=== PATIENT | female | born 1975 | race Caucasian/White ===

== ENCOUNTER → 2017-04-06 13:45 | Emergency (ER) | payer OTHER ==
[~2017-04-06 13:45] MED LIST: Amoxicillin/Clavulanate TAB* 875 MG PO ONE; guaiFENesin ER TAB 600 MG PO ONE
[2017-04-06 15:50] LABS: Hematocrit 39 % (35-47); Hemoglobin 13.1 g/dl (12.0-16.0); Mean Corpuscular HGB Conc 34 g/dl (31-36); Mean Corpuscular Hemoglobin 30 pg (27-31); Mean Corpuscular Volume 89 fL (80-97); Mean Platelet Volume 7 um3 (7.4-10.4); Red Blood Count 4.37 10^6/ul (4.0-5.4); Red Cell Distribution Width 14 % (10.5-15); White Blood Count 12.2 10^3/ul (3.5-10.8)
[2017-04-06 16:06] LABS: Urine Bilirubin Negative (Negative); Urine Glucose Negative (Negative); Urine Nitrite Negative (Negative)
[2017-04-06 16:08] LABS: Albumin 3.8 g/dL (3.2-5.2); BUN/Creatinine Ratio 6.9 (8-20); C Reactive Protein 87.66 mg/L (< 5.00); Calcium 9.2 mg/dL (8.6-10.3); EGFR Non-African American 90.2 (>60); Potassium 3.8 mmol/L (3.5-5.0); Total Bilirubin 0.6 mg/dL (0.2-1.0); Total Protein 7.8 g/dL (6.4-8.9)
[2017-04-06 16:13] LABS: Urine Bacteria Absent (Absent)
--- NOTE | 2017-04-06 16:35 | RAD ---
INDICATION: Shortness of breath. COMPARISON: None TECHNIQUE: PA and lateral views of the chest were obtained. FINDINGS: The heart and mediastinum are normal in size and contour. The lungs are grossly clear. There is no evidence of large pleural effusion. Visualized bones are normal for the patient's age. There is no radiographic evidence of free air beneath the diaphragm IMPRESSION: No radiographic evidence of acute cardiopulmonary disease.
[2017-04-06 16:51] VITALS: BP 119/77
--- NOTE | 2017-04-06 18:43 | ED ---
Aram Salinas Angela, scribed for Dio Anderson MD on 04/06/17 at 1548 . Complex/Multi-Sys Presentation - HPI Summary HPI Summary: This pt is a 41 y/o female presenting to [facility] c/o SOB, sinus congestion, and sore throat x2 days. Pt additionally c/o chest pain, sinus congestion, rhinorrhea, sinus pain, fever, and chills. Pt states she has difficulty swallowing secondary to pain. She reports she has had cold symptoms for the last 5 days, but has been worsening over the past 2 days with SOB. Pt denies nausea, vomiting, diarrhea. Pt notes having these symptoms many times before. PMHx: asthma - History Of Current Complaint Chief Complaint: EDUpperRespComplaint Time Seen by Provider: 04/06/17 15:23 Hx Obtained From: Patient Onset/Duration: Lasting Days Timing: Days Associated Signs And Symptoms: Positive: SOB, Cough, Chest Pain, Fever, Other - chills, sinus congestions, rhinorrhea, sinus pain, sore throat. Negative: Nausea, Vomiting, Diarrhea - Allergies/Home Medications Allergies/Adverse Reactions: Allergies Allergy/AdvReac Type Severity Reaction Status Date / Time No Known Allergies Allergy Verified 04/06/17 13:46 PMH/Surg Hx/FS Hx/Imm Hx Endocrine/Hematology History: Denies: Hx Diabetes Cardiovascular History: Denies: Hx Hypertension Respiratory History: Reports: Hx Asthma Infectious Disease History: No Infectious Disease History: Denies: Traveled Outside the [place] in Last 30 Days - Family History Known Family History: Positive: Hypertension - mother Negative: Cardiac Disease, Diabetes - Social History Alcohol Use: None Hx Substance Use: No Substance Use Type: Reports: None Hx Tobacco Use: No Smoking Status (MU): Never Smoked Tobacco Review of Systems Positive: Fever, Chills Positive: Sore Throat, Nasal Discharge, Other - sinus pain, sinus congestion Positive: Chest Pain. Negative: Palpitations Positive: Shortness Of Breath, Cough - dry Negative: Abdominal Pain, Vomiting, Diarrhea, Nausea Skin: Negative Neurological: Negative All Other Systems Reviewed And Are Negative: Yes Physical Exam - Summary Physical Exam Summary: VITAL SIGNS: Reviewed. GENERAL: ~Patient is a well-developed and nourished female who is lying comfortable in the stretcher. ~Patient is not in any acute respiratory distress. HEAD AND FACE: No signs of trauma. No ecchymosis, hematomas or skull depressions. Positive maxillary and sinus tenderness. Positive nasal congestion and runny nose. EYES: PERRLA, EOMI x 2, No injected conjunctiva, no nystagmus. EARS: Hearing grossly intact. Ear canals and tympanic membranes are within normal limits. MOUTH: Oropharynx within normal limits. NECK: Supple, trachea is midline, no adenopathy, no JVD, no carotid bruit, no c- spine tenderness, neck with full ROM. CHEST: Symmetric, no tenderness at palpation LUNGS: Clear to auscultation bilaterally. No wheezing or crackles. CVS: Regular rate and rhythm, S1 and S2 present, no murmurs or gallops appreciated. ABDOMEN: Soft, non-tender. No signs of distention. No rebound no guarding, and no masses palpated. Bowel sounds are normal. EXTREMITIES: FROM in all major joints, no edema, no cyanosis or clubbing. NEURO: Alert and oriented x 3. No acute neurological deficits. Speech is normal and follows commands. SKIN: Dry and warm Triage Information Reviewed: Yes Vital Signs On Initial Exam: Initial Vitals Temp Pulse Resp BP Pulse Ox 98.4 F 106 20 137/85 100 04/06/17 13:46 04/06/17 13:46 04/06/17 13:46 04/06/17 13:46 04/06/17 13:46 Vital Signs Reviewed: Yes Diagnostics - Vital Signs Vital Signs Temp Pulse Resp BP Pulse Ox 04/06/17 13:46 98.4 F 106 20 137/85 100 - Laboratory Lab Results: Lab Results 04/06/17 04/06/17 04/06/17 Range/Units 15:40 15:40 15:40 WBC 12.2 H (3.5-10.8) 10^3/ul RBC 4.37 (4.0-5.4) 10^6/ul Hgb 13.1 (12.0-16.0) g/dl Hct 39 (35-47) % MCV 89 (80-97) fL MCH 30 (27-31) pg MCHC 34 (31-36) g/dl RDW 14 (10.5-15) % Plt Count 264 (150-450) 10^3/ul MPV 7 L (7.4-10.4) um3 Neut % (Auto) 83.1 H (38-83) % Lymph % (Auto) 7.7 L (25-47) % [place] % (Auto) 5.0 (1-9) % Eos % (Auto) 3.5 (0-6) % Baso % (Auto) 0.7 (0-2) % Absolute Neuts (auto) 10.1 H (1.5-7.7) 10^3/ul Absolute Lymphs (auto) 0.9 L (1.0-4.8) 10^3/ul Absolute Monos (auto) 0.6 (0-0.8) 10^3/ul Absolute Eos (auto) 0.4 (0-0.6) 10^3/ul Absolute Basos (auto) 0.1 (0-0.2) 10^3/ul Absolute Nucleated RBC 0 10^3/ul Nucleated RBC % 0 Sodium 137 (133-145) mmol/L Potassium 3.8 (3.5-5.0) mmol/L Chloride 104 (101-111) mmol/L Carbon Dioxide 27 (22-32) mmol/L Anion Gap 6 (2-11) mmol/L BUN 5 L (6-24) mg/dL Creatinine 0.72 (0.51-0.95) mg/dL Est GFR ( Amer) 116.0 (>60) Est GFR (Non-Af Amer) 90.2 (>60) BUN/Creatinine Ratio 6.9 L (8-20) Glucose 87 (70-100) mg/dL Calcium 9.2 (8.6-10.3) mg/dL Total Bilirubin 0.60 (0.2-1.0) mg/dL AST 17 (13-39) U/L ALT 23 (7-52) U/L Alkaline Phosphatase 77 (34-104) U/L C-Reactive Protein 87.66 H (< 5.00) mg/L Total Protein 7.8 (6.4-8.9) g/dL Albumin 3.8 (3.2-5.2) g/dL Globulin 4.0 (2-4) g/dL Albumin/Globulin Ratio 1.0 (1-3) Urine Color Yellow Urine Appearance Clear Urine pH 7 (5-9) Ur Specific [place] 1.010 (1.010-1.030) Urine Protein Negative (Negative) Urine Ketones Negative (Negative) Urine Blood 1+ H (Negative) Urine Nitrate Negative (Negative) Urine Bilirubin Negative (Negative) Urine Urobilinogen Negative (Negative) Ur Leukocyte Esterase 4+ H (Negative) Urine WBC (Auto) 2+(11-20/hpf) H (Absent) Urine RBC (Auto) Absent (Absent) Ur Squamous Epith Cells Present H (Absent) Urine Bacteria Absent (Absent) Urine Glucose Negative (Negative) Urine Ascorbic Acid Laser Operator Influenza A (Rapid) (Negative) Influenza B (Rapid) (Negative) Group A Strep Rapid (Negative) 04/06/17 04/06/17 Range/Units 15:45 15:49 WBC (3.5-10.8) 10^3/ul RBC (4.0-5.4) 10^6/ul Hgb (12.0-16.0) g/dl Hct (35-47) % MCV (80-97) fL MCH (27-31) pg MCHC (31-36) g/dl RDW (10.5-15) % Plt Count (150-450) 10^3/ul MPV (7.4-10.4) um3 Neut % (Auto) (38-83) % Lymph % (Auto) (25-47) % [place] % (Auto) (1-9) % Eos % (Auto) (0-6) % Baso % (Auto) (0-2) % Absolute Neuts (auto) (1.5-7.7) 10^3/ul Absolute Lymphs (auto) (1.0-4.8) 10^3/ul Absolute Monos (auto) (0-0.8) 10^3/ul Absolute Eos (auto) (0-0.6) 10^3/ul Absolute Basos (auto) (0-0.2) 10^3/ul Absolute Nucleated RBC 10^3/ul Nucleated RBC % Sodium (133-145) mmol/L Potassium (3.5-5.0) mmol/L Chloride (101-111) mmol/L Carbon Dioxide (22-32) mmol/L Anion Gap (2-11) mmol/L BUN (6-24) mg/dL Creatinine (0.51-0.95) mg/dL Est GFR ( Amer) (>60) Est GFR (Non-Af Amer) (>60) BUN/Creatinine Ratio (8-20) Glucose (70-100) mg/dL Calcium (8.6-10.3) mg/dL Total Bilirubin (0.2-1.0) mg/dL AST (13-39) U/L ALT (7-52) U/L Alkaline Phosphatase (34-104) U/L C-Reactive Protein (< 5.00) mg/L Total Protein (6.4-8.9) g/dL Albumin (3.2-5.2) g/dL Globulin (2-4) g/dL Albumin/Globulin Ratio (1-3) Urine Color Urine Appearance Urine pH (5-9) Ur Specific [place] (1.010-1.030) Urine Protein (Negative) Urine Ketones (Negative) Urine Blood (Negative) Urine Nitrate (Negative) Urine Bilirubin (Negative) Urine Urobilinogen (Negative) Ur Leukocyte Esterase (Negative) Urine WBC (Auto) (Absent) Urine RBC (Auto) (Absent) Ur Squamous Epith Cells (Absent) Urine Bacteria (Absent) Urine Glucose (Negative) Urine Ascorbic Acid Influenza A (Rapid) Negative (Negative) Influenza B (Rapid) Negative (Negative) Group A Strep Rapid Negative (Negative) Result Diagrams: 04/06/17 15:40 04/06/17 15:40 Lab Statement: Any lab studies that have been ordered have been reviewed, and results considered in the medical decision making process. - Radiology Chest XR Xray Interpretation: No Acute Changes - IMPRESSION: No radiographic evidence of acute cardiopulmonary disease. ED physician has reviewed this radiology report and agrees. Radiology Interpretation Completed By: Radiologist Complex Multi-Symp Course/Dx Assessment/Plan: This pt is a 41 y/o female presenting to [facility] c/o SOB, sinus congestion, and sore throat x2 days. Pt additionally c/o chest pain, sinus congestion, rhinorrhea, sinus pain, fever, and chills. Pt states she has difficulty swallowing secondary to pain. She reports she has had cold symptoms for the last 5 days, but has been worsening over the past 2 days with SOB. Pt denies nausea, vomiting, diarrhea. Pt notes having these symptoms many times before. PMHx: asthma. Test results show WBC of 12.2 WBC with no bands, otherwise the results of the bloodwork test is negative. UA is contaminated therefore we will send urine for cultures. Influenza A and B are both negative. Rapid strep test is negative for strep throat. I believe the pts symptoms are secondary to acute sinusitis. Therefore the pt was placed on Augmentin, Sudafed , and Flonase. Pt will be discharged home with follow up from her PCP. Pt is hemodynamically stable, alert and oriented x3. - Diagnoses Differential Diagnoses/HQI/PQRI: Sepsis, Urinary Tract Infection, Other Provider Diagnoses: Sinusitis Discharge - Discharge Plan Condition: Stable Disposition: HOME Prescriptions: Amoxicillin/Clavulanate TAB* [Augmentin TAB 875*] 875 mg PO BID #20 tab Fluticasone NASAL SPRAY 50MCG* [Flonase NASAL SPRAY 50MCG*] 2 spray BOTH NARES DAILY #1 btl Pseudoephedrine TAB* [Sudafed TAB*] 60 mg PO BID #10 tab Patient Education Materials: Sinusitis (ED) Referrals: Shaq Abarca [facility] [Primary Care Provider] - Additional Instructions: Please follow up with your primary care provider. The documentation as recorded by the Aram camacho Angela accurately reflects the service I personally performed and the decisions made by me, Dio Anderson MD.
== END | disposition home or self-care (01) ==
LOC: ED 13:45
DX: J32.9 Chronic sinusitis, unspecified (principal); J45.909 Unspecified asthma, uncomplicated
CPT/HCPCS: 36415; 71020; 80053; 81003; 81015; 85025; 86140; 87086; 87502; 87651; 99282; A9270-GY

== ENCOUNTER 2019-01-04 15:33 | Emergency (ER) | payer OTHER ==
[2019-01-04 17:01] VITALS: BP 120/78
--- NOTE | 2019-01-04 18:00 | ED ---
Back Pain - HPI Summary HPI Summary: Patient is a 43-year-old female who presents emergency department for right low back pain radiates into right leg times several days. Patient states she's had issues with sciatica in the past and symptoms seem similar. She denies any recent falls or injuries. She is unemployed. Patient denies numbness, tingling or weakness in lower extremities. Denies bowel or bladder incontinence or retention. Patient states she tried placing heat on her back but has not had any [id number] analgesics. Symptoms are mild in severity. Movement makes symptoms worse. Nothing makes symptoms better. - History of Current Complaint Chief Complaint: EDExtremityLower Stated Complaint: RT LEG PAIN PER PT Time Seen by Provider: 01/04/19 16:00 Hx Obtained From: Patient Pain Intensity: 10 Pain Scale Used: 0-10 Numeric - Allergies/Home Medications Allergies/Adverse Reactions: Allergies Allergy/AdvReac Type Severity Reaction Status Date / Time No Known Allergies Allergy Verified 09/18/18 11:34 PMH/Surg Hx/FS Hx/Imm Hx Previously Healthy: Yes Endocrine/Hematology History: Denies: Hx Diabetes Cardiovascular History: Denies: Hx Hypertension, Hx Pacemaker/ICD Respiratory History: Reports: Hx Asthma History: Denies: Hx Renal Disease Sensory History: Denies: Hx Hearing Aid Psychiatric History: Denies: Hx Panic Disorder Infectious Disease History: No Infectious Disease History: Denies: Traveled Outside the [place] in Last 30 Days - Family History Known Family History: Positive: Hypertension - mother, Non-Contributory Negative: Cardiac Disease, Diabetes - Social History Occupation: Unemployed Lives: With Family Alcohol Use: None Hx Substance Use: No Substance Use Type: Reports: None Hx Tobacco Use: No Smoking Status (MU): Never Smoked Tobacco Review of Systems Constitutional: Negative Negative: Fever, Chills Gastrointestinal: Negative Genitourinary: Negative Positive: Other - right low back pain Skin: Negative Negative: Rash Neurological: Negative Negative: Weakness, Paresthesia, Numbness All Other Systems Reviewed And Are Negative: Yes Physical Exam Triage Information Reviewed: Yes Vital Signs On Initial Exam: Initial Vitals Temp Pulse Resp BP Pulse Ox 99.0 F 86 18 156/88 98 01/04/19 15:34 01/04/19 15:34 01/04/19 15:34 01/04/19 15:34 01/04/19 15:34 Vital Signs Reviewed: Yes Appearance: Positive: Well-Appearing - Pt. sitting on side of bed in NAD. Skin: Positive: Warm, Dry Head/Face: Positive: Normal Head/Face Inspection Eyes: Positive: Normal, EOMI, [place]UV[place] Neck: Positive: Supple Musculoskeletal: Positive: Other - Pain on palpation over right low lumbar paraspinal region and right SI joint. 5/5 strength in bilateral LEs. Negative straight leg test bilaterally. Neurological: Positive: Normal, CN Intact II-III Psychiatric: Positive: Affect/Mood Appropriate Diagnostics - Vital Signs Vital Signs Temp Pulse Resp BP Pulse Ox 01/04/19 17:00 97.8 F 72 16 120/78 97 01/04/19 15:34 99.0 F 86 18 156/88 98 - Laboratory Lab Statement: Any lab studies that have been ordered have been reviewed, and results considered in the medical decision making process. Back Pain Course/Dx - Course Course Of Treatment: Patient presenting with atraumatic low back pain. Symptoms consistent with sciatica. Patient is afebrile. No evidence of cauda equina syndrome on exam. We'll treat with anti-inflammatories. Advised warm compresses and gentle massage and stretching. Close follow-up with PCP for further evaluation. To return to the ER for leg weakness/numbness, bowel or bladder incontinence or retention. Patient understands and agrees with plan. - Diagnoses Differential Diagnosis/HQI/PQRI: Positive: Arthritis, Fracture, Strain, Sprain Provider Diagnoses: Sciatica Discharge - Sign-Out/Discharge Documenting (check all that apply): Patient Departure Patient Received Moderate/Deep Sedation with Procedure: No - Discharge Plan Condition: Good Disposition: HOME Prescriptions: Naproxen [Naproxen 500 mg tab] 500 mg PO BID #20 tablet Patient Education Materials: Sciatica (ED) Referrals: Pooja Live MD [Primary Care Provider] - Additional Instructions: Follow up with PCP Naproxen as directed Gentle stretching and apply heat Avoid heavy lifting Return to ER if symptoms change or worsen - Billing Disposition and Condition Condition: GOOD Disposition: Home
== END 2019-01-04 17:01 | disposition home or self-care (01) ==
LOC: ED 15:33
DX: M54.41 Lumbago with sciatica, right side (principal)
CPT/HCPCS: 99282